=== PATIENT | male | born 1985 | race Caucasian/White ===

== ENCOUNTER 2017-12-02 18:23 | Emergency (ER) | payer OTHER ==
[2017-12-02] MEDS ORDERED: HYDROCODONE/APAP 5/325 MG TAB ONE (19:13)
[2017-12-02] MEDS ORDERED: IBUPROFEN 400 MG TAB ONE (19:13)
[2017-12-02] MEDS ORDERED: ONDANSETRON 4 MG (ODT) TAB ONE (19:14)
--- NOTE | 2017-12-02 19:50 | ER ---
Nurse's Notes [facility] Name: Shane Calero II Age: 32 yrs Sex: Male : 1985 Arrival Date: 12/02/2017 Time: 18:29 Bed 12 Private MD: Prashant Reyes Diagnosis: Sprain of ankle Presentation: 12/02 18:50 Presenting complaint: Patient states: Reports pain to right ankle since rolling it at aj 1300 today. Patient reports ambulating since injury. Transition of care: patient was not received from another setting of care. Onset of symptoms was December 02, 2017. Risk Assessment: Do you want to hurt yourself or someone else? Patient reports no desire to harm self or others. Initial Sepsis Screen: Does the patient meet any 2 criteria? No. Patient's initial sepsis screen is negative. Does the patient have a suspected source of infection? No. Patient's initial sepsis screen is negative. Care prior to arrival: None. 18:50 Method Of Arrival: Wheelchair 18:50 Acuity: JOSEPH 4 aj Triage Assessment: 18:51 General: Appears in no apparent distress. uncomfortable, Behavior is calm, cooperative, aj appropriate for age. Pain: Complains of pain in anterior aspect of right ankle and dorsum of right foot. Neuro: Level of Consciousness is awake, alert, obeys commands, Oriented to person, place, time, situation, Appropriate for age. Respiratory: Airway is patent Respiratory effort is even, unlabored, Respiratory pattern is regular, symmetrical. Derm: Skin is intact, is healthy with good turgor, Skin is pink, warm \T\ dry. normal. Musculoskeletal: Reports pain in right ankle and lateral aspect of right foot. Historical: - Allergies: 18:51 No Known Allergies; aj - Home Meds: 18:51 None [Active]; aj - PMHx: 18:51 None; aj - PSHx: 18:51 None; aj - Immunization history:: Adult Immunizations up to date. - Social history:: Smoking status: Patient uses tobacco products, denies chronic smoking, but will smoke occasionally. - Ebola Screening: : Patient negative for fever greater than or equal to 101.5 degrees Fahrenheit, and additional compatible Ebola Virus Disease symptoms Patient denies exposure to infectious person Patient denies travel to an Ebola-affected area in the 21 days before illness onset No symptoms or risks identified at this time. Screenin:00 Abuse screen: Denies threats or abuse. Nutritional screening: No deficits noted. rk2 Tuberculosis screening: No symptoms or risk factors identified. Fall Risk None identified. Assessment: 19:01 General: Appears in no apparent distress. uncomfortable, well developed, well rk2 nourished, Behavior is calm, cooperative, appropriate for age. Pain: Complains of pain in lateral aspect of right foot and right ankle and right leg and dorsum of right foot and anterior aspect of right ankle. Neuro: Level of Consciousness is alert, obeys commands, Oriented to person, place, time, situation, Appropriate for age. Respiratory: Airway is patent Respiratory effort is even, unlabored, Respiratory pattern is regular, symmetrical. Derm: Skin is pink, warm \T\ dry. Injury Description: Swelling, good pedal pulse and cap refill. 19:40 Reassessment: Xray completed \T\ bedside. rk2 Vital Signs: 18:51 BP 156 / 97; Pulse 106; Resp 20; Temp 98.5; Pulse Ox 97% on R/A; Weight 115.67 kg; aj Height 6 ft. 1 in. (185.42 cm); 18:51 Body Mass Index 33.64 (115.67 kg, 185.42 cm) aj ED Course: 18:29 Patient arrived in ED. sb2 18:29 Prashant Reyes MD is Private Physician. sb2 18:38 Naf[facility] L[facility]C [facility]. snw 18:38 Mike Santos MD is Attending Physician. snw 18:51 Triage completed. aj 18:51 Arm band placed on left wrist. Patient placed in an exam room. aj 19:00 Marina King, IVETTE is Primary Nurse. rk2 19:00 Patient has correct armband on for positive identification. Bed in low position. Call rk2 light in reach. 19:39 Ankle Right 3 View XRAY Sent. rk2 19:45 X-ray completed. Portable x-ray completed in exam room. Patient tolerated procedure kp1 well. 19:45 Ankle Right 3 View XRAY In Process Unspecified. EDMS 19:49 Prashant Reyes MD is Referral Physician. snw 20:12 No provider procedures requiring assistance completed. Patient did not have IV access rk2 during this emergency room visit. Administered Medications: 19:13 Drug: Motrin 400 mg Route: PO; rk2 20:12 Follow up: Response: No adverse reaction rk2 19:13 Drug: Zofran 4 mg Route: PO; rk2 20:12 Follow up: Response: No adverse reaction rk2 19:14 Drug: [place] 5 mg-325 mg 1 tabs Route: PO; rk2 20:12 Follow up: Response: No adverse reaction rk2 Outcome: 19:50 Discharge ordered by MD. ortiz 20:12 Discharged to home with crutches. rk2 20:12 Condition: good 20:12 Discharge instructions given to patient, Prescriptions given X 2. 20:13 Patient left the ED. rk2 Signatures: Dispatcher [employer] Sabine Espinoza RN Nafisa Truong, BELL PERSON-C BELL PERSON-Csnw Courtney Roe kp1 Marina King RN RN rk2 Tete Prince sb2
--- NOTE | 2017-12-02 19:50 | EDPHYS ---
Physician Documentation [facility] Name: Shane Calero II Age: 32 yrs Sex: Male : 1985 Arrival Date: 12/02/2017 Time: 18:29 Bed 12 Private MD: Prashant Reyes ED Physician Mike Santos HPI: 12/02 19:06 This 32 yrs old Male presents to ER via Wheelchair with complaints of Ankle snw Injury. 19:06 The patient presents with decreased range of motion, an injury, pain, swelling. The snw complaints affect the right ankle. Onset: The symptoms/episode began/occurred suddenly, today. Context: The problem was sustained at work, resulted from a mis-step by the patient, onto a 1/4" pipe off as he stepped off the ladder onto the platform, The mechanism of injury involved inversion of the affected ankle. Associated signs and symptoms: Pertinent positives: swelling. Severity of symptoms: At their worst the symptoms were severe. The patient has not experienced similar symptoms in the past. It is unknown whether or not the patient has recently seen a physician. Historical: - Allergies: 18:51 No Known Allergies; aj - Home Meds: 18:51 None [Active]; aj - PMHx: 18:51 None; aj - PSHx: 18:51 None; aj - Immunization history:: Adult Immunizations up to date. - Social history:: Smoking status: Patient uses tobacco products, denies chronic smoking, but will smoke occasionally. - Ebola Screening: : Patient negative for fever greater than or equal to 101.5 degrees Fahrenheit, and additional compatible Ebola Virus Disease symptoms Patient denies exposure to infectious person Patient denies travel to an Ebola-affected area in the 21 days before illness onset No symptoms or risks identified at this time. ROS: 19:05 Constitutional: Negative for fever, chills, and weight loss, Eyes: Negative for injury, snw pain, redness, and discharge, ENT: Negative for injury, pain, and discharge, Neck: Negative for injury, pain, and swelling, Cardiovascular: Negative for chest pain, palpitations, and edema, Respiratory: Negative for shortness of breath, cough, wheezing, and pleuritic chest pain, Abdomen/GI: Negative for abdominal pain, nausea, vomiting, diarrhea, and constipation, Back: Negative for injury and pain, : Negative for injury, bleeding, discharge, and swelling, Skin: Negative for injury, rash, and discoloration, Neuro: Negative for headache, weakness, numbness, tingling, and seizure. 19:05 MS/extremity: Positive for injury or acute deformity, decreased range of motion, pain, swelling, of the right ankle. Exam: 19:05 Constitutional: This is a well developed, well nourished patient who is awake, alert, snw and in no acute distress. Head/Face: Normocephalic, atraumatic. Eyes: Pupils equal round and reactive to light, extra-ocular motions intact. Lids and lashes normal. Conjunctiva and sclera are non-icteric and not injected. Cornea within normal limits. Periorbital areas with no swelling, redness, or edema. ENT: Nares patent. No nasal discharge, no septal abnormalities noted. Tympanic membranes are normal and external auditory canals are clear. Oropharynx with no redness, swelling, or masses, exudates, or evidence of obstruction, uvula midline. Mucous membranes moist. Neck: Trachea midline, no thyromegaly or masses palpated, and no cervical lymphadenopathy. Supple, full range of motion without nuchal rigidity, or vertebral point tenderness. No Meningismus. Chest/axilla: Normal chest wall appearance and motion. Nontender with no deformity. No lesions are appreciated. Cardiovascular: Regular rate and rhythm with a normal S1 and S2. No gallops, murmurs, or rubs. Normal PMI, no JVD. No pulse deficits. Respiratory: Lungs have equal breath sounds bilaterally, clear to auscultation and percussion. No rales, rhonchi or wheezes noted. No increased work of breathing, no retractions or nasal flaring. Abdomen/GI: Soft, non-tender, with normal bowel sounds. No distension or tympany. No guarding or rebound. No evidence of tenderness throughout. Back: No spinal tenderness. No costovertebral tenderness. Full range of motion. Skin: Warm, dry with normal turgor. Normal color with no rashes, no lesions, and no evidence of cellulitis. Neuro: Awake and alert, GCS 15, oriented to person, place, time, and situation. Cranial nerves II-XII grossly intact. Motor strength 5/5 in all extremities. Sensory grossly intact. Cerebellar exam normal. Normal gait. Psych: Awake, alert, with orientation to person, place and time. Behavior, mood, and affect are within normal limits. 19:05 Musculoskeletal/extremity: Extremities: grossly normal except: noted in the right ankle: contusion, decreased ROM, ecchymosis, pain, swelling. Vital Signs: 18:51 BP 156 / 97; Pulse 106; Resp 20; Temp 98.5; Pulse Ox 97% on R/A; Weight 115.67 kg; aj Height 6 ft. 1 in. (185.42 cm); 18:51 Body Mass Index 33.64 (115.67 kg, 185.42 cm) aj MDM: 18:39 Patient medically screened. snw 19:51 Data reviewed: vital signs, nurses notes. Data interpreted: Pulse oximetry: on room air snw is 97 %. Interpretation: normal. Test interpretation: by ED physician or midlevel provider: plain radiologic studies, right ankle, soft tissue edema, no noted fx. Special discussion: I have referred the patient to see his PCP for further evaluation of high blood pressure. Based on the history and exam findings, there is no indication for further emergent testing or inpatient evaluation. I discussed with the patient/guardian the need to see the orthopedic surgeon for further evaluation of the symptoms. I discussed with the patient/guardian the need to see the primary care provider for further evaluation of the symptoms. 12/02 18:52 Order name: Ankle Right 3 View XRAY; Complete Time: 20:01 snw 12/02 19:49 Order name: Aircast Ankle Splint; Complete Time: 20:11 snw 12/02 19:49 Order name: Crutch Training; Complete Time: 20:11 snw 12/02 19:49 Order name: Crutches; Complete Time: 20:11 snw Administered Medications: 19:13 Drug: Motrin 400 mg Route: PO; rk2 20:12 Follow up: Response: No adverse reaction rk2 19:13 Drug: Zofran 4 mg Route: PO; rk2 20:12 Follow up: Response: No adverse reaction rk2 19:14 Drug: [place] 5 mg-325 mg 1 tabs Route: PO; rk2 20:12 Follow up: Response: No adverse reaction rk2 Disposition: 12/03 06:54 Co-signature as Attending Physician, Mike Santos MD I agree with the assessment and sana plan of care. Disposition: 12/02/17 19:50 Discharged to Home. Impression: Sprain of ankle. - Condition is Stable. - Discharge Instructions: Elastic Bandage and RICE, Ankle Sprain, Crutch Use, Ankle Pain, Cryotherapy, Heat Therapy. - Prescriptions for Diclofenac Sodium 75 mg Oral Tablet Sustained Release - take 1 tablet by ORAL route 2 times per day; 30 tablet. orphenadrine citrate 100 mg Oral Tablet Sustained Release - take 1 tablet by ORAL route 2 times per day As needed; 20 tablet. - Work release form, Medication Reconciliation Form, Thank You Letter, Antibiotic Education, Prescription Opioid Use form. - Follow up: Prashant Reyes MD; When: 2 - 3 days; Reason: Recheck today's complaints, Continuance of care, Re-evaluation by your physician. Follow up: Emergency Department; When: As needed; Reason: Worsening of condition. Signatures: Dispatcher [employer] EDMS Sabine Silva RN Mike Oconnell MD MD cha Therrien, Shelly, BROADCAST DESIGNER-C BROADCAST DESIGNER-Csnw Marina King RN RN rk2 Corrections: (The following items were deleted from the chart) 12/02 20:13 19:50 12/02/2017 19:50 Discharged to Home. Impression: Sprain of ankle. Condition is rk2 Stable. Forms are Medication Reconciliation Form, Thank You Letter, Antibiotic Education, Prescription Opioid Use. Follow up: Prashant Reyes; When: 2 - 3 days; Reason: Recheck today's complaints, Continuance of care, Re-evaluation by your physician. Follow up: Emergency Department; When: As needed; Reason: Worsening of condition. snw
--- NOTE | 2017-12-02 19:55 | RAD REPORT ---
EXAM DESCRIPTION: RAD - Ankle Right 3 View - 12/02/2017 7:46 pm CLINICAL HISTORY: PAIN Twisting injury to right ankle. COMPARISON: Ankle Right 3 View dated 06/09/2016 FINDINGS: Soft tissue swelling is seen along the lateral aspect of the ankle. Small avulsion fractur e from the lateral process of the talus is suspected.
[2017-12-02 20:17] VITALS: BP 156/97; TEMP 98.5; O2SAT 97
== END 2017-12-02 20:13 | disposition home or self-care (01) ==
LOC: ER 18:23
DX: S93.401A Sprain of unspecified ligament of right ankle, initial encounter (principal); X50.1XXA Overexertion from prolonged static or awkward postures, initial encounter; Y93.9 Activity, unspecified; Y92.69 Other specified industrial and construction area as the place of occurrence of the external cause; Z72.0 Tobacco use
CPT/HCPCS: 99283

== ENCOUNTER 2019-06-22 15:01 | Emergency (ER) | payer BC ==
[2019-06-22] MEDS ORDERED: DIAZEPAM 5 MG TABLET ONE (16:14)
--- NOTE | 2019-06-22 18:18 | RAD REPORT ---
EXAM DESCRIPTION: MRI - Lumbar Spine Wo Con - 06/22/2019 6:03 pm CLINICAL HISTORY: Back pain with bilateral lower extremity radiculopathy following a fall 2 days ear lier COMPARISON: None. TECHNIQUE: Sagittal T1-weighted, T2-weighted and T2-STIR weighted sequences were obtained. Axial T1 -weighted and heavily T2-weighted sequenceswere obtained through the lumbar disc levels. FINDINGS: Lumbar bodies are normal in height and alignment. No suspicious marrow signal. No paraspi nal masses. Fatty marrow degenerative changes are present adjacent to the L3-4 and L4-5 disc levels. Conus is normal with no clumping or thickening of the cauda equina. T12-L1 level: No significant findings. L1-2 level: No significant findings. L2-3 level: Disc is desiccated. There is a prominent bulge of disc material in the midline flattening the thecal sac. Midline canal diameter is 11 mm. No significant foraminal encroachment. There is dis c bulge into each exit foramen. L3-4 level: Disc is desiccated. Circumferential bulging of disc material is present. There is mild bi lateral foraminal encroachment. Perineural fat is still present. Thecal sac is flattened. Protrusion is focally more pronounced in the midline. Central canal is 10 mm in the midline. L4-5 level: Disc is thinned and desiccated. There is a circumferential bulging of disc material. No s ignificant foraminal encroachment. Thecal sac is flattened. At the disc level the canal is 10 mm. The re is a 8 mm AP x 9 mm TR disc herniation that extends inferiorly along the posterior wall of L5. Thi s causes further flattening of the thecal sac in the midline and left-side. L5-S1 level: Disc is desiccated. Left of midline there is a 9 mm AP by 14 mm TR x 8 mm CC disc hernia tion. This flattens the thecal sac and displaces the left S1 nerve root. No central spinal stenosis. No significant right foraminal encroachment. Protruding disc material causes a mild to moderate left foraminal encroachment. IMPRESSION: Moderately large midline and left-sided disc herniation L5-S1 causing thecal sac flatten ing and left S1 nerve root displacement. L4-5 midline and left-sided disc herniation extending inferiorly along posterior wall L5. There is th ecal sac flattening and borderline central spinal stenosis. No critical degree of foraminal stenosis identified. Multiple levels show mild up to moderate encroac hment. Overall patient has very advanced for age degenerative change involving the lower 4 lumbar disc level s. No acute compression fracture. No acute vertebral body finding.
--- NOTE | 2019-06-22 18:39 | ER ---
Nurse's Notes [facility] Name: Shane Calero II Age: 33 yrs Sex: Male : 1985 Arrival Date: 06/22/2019 Time: 15:06 Bed 18 Private MD: Prashant Reyes Diagnosis: Acute back pain. Prolapsed intervertebral discs Presentation: 06/22 15:12 Presenting complaint: Patient states: i fell 2 days ago from a ladder about 3-4 feet mg2 high and i landed on my back. i also have bone spurts accdg to Dr Arreola. Transition of care: patient was not received from another setting of care. Onset of symptoms was June 20, 2019. Risk Assessment: Do you want to hurt yourself or someone else? Patient reports no desire to harm self or others. Initial Sepsis Screen: Does the patient meet any 2 criteria? No. Patient's initial sepsis screen is negative. Does the patient have a suspected source of infection? No. Patient's initial sepsis screen is negative. Care prior to arrival: None. 15:12 Method Of Arrival: Ambulatory mg2 15:12 Acuity: JOSEPH 4 mg2 Triage Assessment: 15:30 General: Appears in no apparent distress. comfortable, Behavior is cooperative, bp appropriate for age, anxious. Pain: Complains of pain in buttocks. EENT: No deficits noted. Neuro: No deficits noted. Cardiovascular: No deficits noted. Respiratory: No deficits noted. GI: No signs and/or symptoms were reported involving the gastrointestinal system. : No signs and/or symptoms were reported regarding the genitourinary system. Derm: No deficits noted. Musculoskeletal: Circulation, motion, and sensation intact. Range of motion: intact in all extremities. Historical: - Allergies: 15:16 No Known Allergies; mg2 - Home Meds: 15:16 None [Active]; mg2 - PMHx: 15:16 bone spurts on my back; mg2 - PSHx: 15:16 elbow sx; mg2 - Immunization history:: Flu vaccine is up to date. - Social history:: Smoking status: Patient uses tobacco products, smokes one-half pack cigarettes per day, Patient/guardian denies using alcohol, street drugs, IV drugs. - Ebola Screening: : No symptoms or risks identified at this time. Screenin:37 Abuse screen: Denies threats or abuse. Denies injuries from another. Nutritional mg2 screening: No deficits noted. Tuberculosis screening: No symptoms or risk factors identified. Fall Risk Assessment: 15:30 General: SEE TRIAGE NOTE. Neuro: Level of Consciousness is awake, alert, obeys bp commands, Oriented to person, place, time, situation, Appropriate for age Gait is steady. 17:17 Reassessment: PT STATES SOME IMPROVEMENT IN S/S. MRI PENDING. bp 17:34 Reassessment: PT TO MRI. bp 18:16 Reassessment: PT RETURNED FROM MRI. 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 bp XRAY NOTIFIED. 18:49 Reassessment: D/C ON HOLD FOR RADIOLOGY DISC. bp 19:25 Reassessment: Patient appears in no apparent distress at this time. Patient and/or wh family updated on plan of care and expected duration. Pain level reassessed. Patient is alert, oriented x 3, equal unlabored respirations, skin warm/dry/pink. Patient states feeling better. Patient states symptoms have improved. Vital Signs: 15:15 BP 149 / 104; Pulse 105; Resp 18; Temp 98.2; Pulse Ox 100% on R/A; Weight 109.77 kg; mg2 Height 6 ft. 1 in. (185.42 cm); Pain 10/10; 17:17 BP 126 / 88; Pulse 90; Resp 16; Pulse Ox 97% ; bp 18:16 BP 124 / 81; Pulse 84; Resp 16; Pulse Ox 96% ; bp 15:15 Body Mass Index 31.93 (109.77 kg, 185.42 cm) mg2 ED Course: 15:06 Patient arrived in ED. mr 15:06 Prashant Reyes MD is Private Physician. mr 15:15 Triage completed. mg2 15:16 Arm band placed on. mg2 15:52 Javier Strickland, IVETTE is Primary Nurse. bp 15:52 Ramón Beck MD is Attending Physician. pkl 15:53 Patient has correct armband on for positive identification. Bed in low position. Call bp light in reach. Side rails up X2. 17:54 MRI Lumbar Spine wo Con In Process Unspecified. EDMS 18:49 No provider procedures requiring assistance completed. Patient did not have IV access bp during this emergency room visit. Administered Medications: 16:05 Drug: Valium 10 mg Route: PO; bp 18:25 Follow up: Response: No adverse reaction; Pain is decreased bp 18:45 Drug: Zofran 4 mg Route: PO; bp 19:32 Follow up: Response: No adverse reaction; RASS: Alert and Calm (0) 18:45 Drug: morphine 4 mg Route: IM; Site: left deltoid; bp 19:32 Follow up: Response: No adverse reaction; Pain is decreased; RASS: Alert and Calm (0) 18:48 Not Given (Other Intervention Used): morphine 4 mg IVP once; RASS on ADMIN: Combtv4, bp Very Agttd3, Agttd2, Rstlss1, AlertClm0, Drwsy-1, Lt Sdtn-2, Mod Sdtn-3, Dp Sdtn-4, UnArsble-5 Outcome: 18:37 Discharge ordered by . joaquín 19:30 Discharged to home ambulatory, with family. 19:30 Condition: stable 19:30 Discharge instructions given to patient, family, Instructed on discharge instructions, follow up and referral plans. no drinking with medication, no driving heavy equipment, medication usage, POC Demonstrated understanding of instructions, follow-up care, medications, POC Prescriptions given X 2. 19:33 Patient left the ED. Signatures: Dispatcher [employer] EDMS Ramón Beck MD MD joaquín Hilton, Charla mr Melendez, Bonnie Javier Strickland, IVETTE RN Trip Rick RN RN mg2 Corrections: (The following items were deleted from the chart) 15:36 15:12 Presenting complaint: Patient states: i fell q2 days ago from a ladder about 3-4 mg2 feet high and i landed on my back. i also have bone spurts accdg to Dr Arreola. mg2 15:36 15:12 Presenting complaint: Patient states: i fell 2 days ago from a ladder about 3-4 mg2 feet high and i landed on my back. i also have bone spurts accdg to Dr Arreola. 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
--- NOTE | 2019-06-22 18:39 | EDPHYS ---
Physician Documentation [facility] Name: Shane Calero II Age: 33 yrs Sex: Male : 1985 Arrival Date: 06/22/2019 Time: 15:06 Bed 18 Private MD: Prashant Reyes ED Physician Ramón Beck HPI: 06/22 16:01 This 33 yrs old Male presents to ER via Ambulatory with complaints of Back pkl Pain. 16:01 The patient presents with pain that is acute. The symptoms are located in the low back. pkl Onset: The symptoms/episode began/occurred 2 day(s) ago. The pain radiates to the down right thigh. Associated signs and symptoms: The patient has no apparent associated signs or symptoms. The problem was sustained during a fall, Fell off ladder about 4 feet high. Historical: - Allergies: 15:16 No Known Allergies; mg2 - Home Meds: 15:16 None [Active]; mg2 - PMHx: 15:16 bone spurts on my back; mg2 - PSHx: 15:16 elbow sx; mg2 - Immunization history:: Flu vaccine is up to date. - Social history:: Smoking status: Patient uses tobacco products, smokes one-half pack cigarettes per day, Patient/guardian denies using alcohol, street drugs, IV drugs. - Ebola Screening: : No symptoms or risks identified at this time. ROS: 16:01 Eyes: Negative for injury, pain, redness, and discharge, ENT: Negative for injury, pkl pain, and discharge, Neck: Negative for injury, pain, and swelling, Cardiovascular: Negative for chest pain, palpitations, and edema, Respiratory: Negative for shortness of breath, cough, wheezing, and pleuritic chest pain, Abdomen/GI: Negative for abdominal pain, nausea, vomiting, diarrhea, and constipation. 16:01 Back: Positive for pain with movement, of the lower back. 16:01 : Negative for urinary symptoms. 16:01 MS/extremity: Negative for acute changes. 16:01 Skin: Negative for rash. 16:01 Neuro: Negative for altered mental status, loss of consciousness. Exam: 16:01 Head/Face: Normocephalic, atraumatic. Eyes: Pupils equal round and reactive to light, pkl extra-ocular motions intact. Lids and lashes normal. Conjunctiva and sclera are non-icteric and not injected. Cornea within normal limits. Periorbital areas with no swelling, redness, or edema. ENT: Nares patent. No nasal discharge, no septal abnormalities noted. Tympanic membranes are normal and external auditory canals are clear. Oropharynx with no redness, swelling, or masses, exudates, or evidence of obstruction, uvula midline. Mucous membranes moist. Neck: Trachea midline, no thyromegaly or masses palpated, and no cervical lymphadenopathy. Supple, full range of motion without nuchal rigidity, or vertebral point tenderness. No Meningismus. Chest/axilla: Normal chest wall appearance and motion. Nontender with no deformity. No lesions are appreciated. Cardiovascular: Regular rate and rhythm with a normal S1 and S2. No gallops, murmurs, or rubs. Normal PMI, no JVD. No pulse deficits. Respiratory: Lungs have equal breath sounds bilaterally, clear to auscultation and percussion. No rales, rhonchi or wheezes noted. No increased work of breathing, no retractions or nasal flaring. Abdomen/GI: Soft, non-tender, with normal bowel sounds. No distension or tympany. No guarding or rebound. No evidence of tenderness throughout. 16:01 Back: Straight leg raises: of both lower extremities does not illicit pain. 16:01 Musculoskeletal/extremity: Exam is negative for acute changes. pkl 16:01 Skin: Exam negative for rash. 16:01 Neuro: Orientation: is normal, Mentation: is normal, Cranial nerves: grossly normal, Motor: is normal. Vital Signs: 15:15 BP 149 / 104; Pulse 105; Resp 18; Temp 98.2; Pulse Ox 100% on R/A; Weight 109.77 kg; mg2 Height 6 ft. 1 in. (185.42 cm); Pain 10/10; 17:17 BP 126 / 88; Pulse 90; Resp 16; Pulse Ox 97% ; bp 18:16 BP 124 / 81; Pulse 84; Resp 16; Pulse Ox 96% ; bp 15:15 Body Mass Index 31.93 (109.77 kg, 185.42 cm) mg2 MDM: 15:52 Patient medically screened. pkl 18:31 Data reviewed: vital signs, nurses notes, radiologic studies, MRI. ED course: [facility]. Advised follow up with neuro-surgeon in 2 to 3 days for further evaluations. Patient understood instructions. 06/22 15:59 Order name: MRI Lumbar Spine wo Con; Complete Time: 18:22 pkl Administered Medications: 16:05 Drug: Valium 10 mg Route: PO; bp 18:25 Follow up: Response: No adverse reaction; Pain is decreased bp 18:45 Drug: Zofran 4 mg Route: PO; bp 19:32 Follow up: Response: No adverse reaction; RASS: Alert and Calm (0) wh 18:45 Drug: morphine 4 mg Route: IM; Site: left deltoid; bp 19:32 Follow up: Response: No adverse reaction; Pain is decreased; RASS: Alert and Calm (0) wh 18:48 Not Given (Other Intervention Used): morphine 4 mg IVP once; RASS on ADMIN: Combtv4, bp Very Agttd3, Agttd2, Rstlss1, AlertClm0, Drwsy-1, Lt Sdtn-2, Mod Sdtn-3, Dp Sdtn-4, UnArsble-5 Disposition: 06/22/19 18:37 Discharged to Home. Impression: Acute back pain. Prolapsed intervertebral discs. - Condition is Stable. - Prescriptions for Tylenol- Codeine #3 300-30 mg Oral Tablet - take 2 tablets by ORAL route every 8 hours As needed; 30 tablet. Valium 10 mg Oral Tablet - take 1 tablet by ORAL route 2 times per day As needed; 14 tablet. - Work release form, Medication Reconciliation Form, Thank You Letter, Antibiotic Education, Prescription Opioid Use form. - Follow up: Private Physician; When: 2 - 3 days; Reason: Re-evaluation by your physician. - Problem is new. - Symptoms have improved. Signatures: Dispatcher [employer] EDMS Ramón Beck MD MD pkBonnie Veras Javier Strickland RN RN Trip Rick RN RN mg2 Corrections: (The following items were deleted from the chart) 16:07 16:01 Back: pain, that is moderate, of the lower back, pkl pkl 19:33 18:37 06/22/2019 18:37 Discharged to Home. Impression: Acute back pain. Prolapsed wh intervertebral discs. Condition is Stable. Forms are Medication Reconciliation Form, Thank You Letter, Antibiotic Education, Prescription Opioid Use. Follow up: Private Physician; When: 2 - 3 days; Reason: Re-evaluation by your physician. Problem is new. Symptoms have improved. pkl
[2019-06-22] MEDS ORDERED: ONDANSETRON 4 MG (ODT) TAB ONE (18:43)
[2019-06-22] MEDS ORDERED: MORPHINE 4 MG/ML SYR ONE (18:44)
[2019-06-22 20:15] VITALS: TEMP 98.2
[2019-06-22 20:18] VITALS: BP 124/81; O2SAT 96
== END 2019-06-22 19:33 | disposition home or self-care (01) ==
LOC: ER 15:01
DX: M51.26 Other intervertebral disc displacement, lumbar region (principal); R20.2 Paresthesia of skin; F17.210 Nicotine dependence, cigarettes, uncomplicated
CPT/HCPCS: 72148; 96372; 99283

== ENCOUNTER 2019-06-27 09:23 | Emergency (ER) | payer BC ==
[2019-06-27] MEDS ORDERED: DIAZEPAM 5 MG TABLET ONE (10:54)
[2019-06-27] MEDS ORDERED: MORPHINE 4 MG/ML SYR ONE (10:54)
[2019-06-27] MEDS ORDERED: ONDANSETRON 4 MG (ODT) TAB ONE (10:55)
[2019-06-27] MEDS ORDERED: KETOROLAC 30 MG/ML INJ ONE (11:17)
[2019-06-27] MEDS ORDERED: LIDOCAINE 4% PATCH ONE (11:17)
--- NOTE | 2019-06-27 11:33 | ER ---
Nurse's Notes [facility] Name: Shane Calero II Age: 33 yrs Sex: Male : 1985 Arrival Date: 06/27/2019 Time: 09:25 Bed 19 Private MD: Prashant Reyes Diagnosis: Other intervertebral disc disorders, lumbar region;Low back pain Presentation: 06/27 09:46 Presenting complaint: Patient states: came in on Saturday , diagnosed with herniated iw disc, was given pain meds but his local doctor recommended him to pain magmt, can't get in for 3-6 months, pain meds are going to run out tomorrow, wants to be reevaluated to see if he can get more pain meds. Transition of care: patient was not received from another setting of care. Onset of symptoms was June 27, 2019. Risk Assessment: Do you want to hurt yourself or someone else? Patient reports no desire to harm self or others. Initial Sepsis Screen: Does the patient meet any 2 criteria? No. Patient's initial sepsis screen is negative. Does the patient have a suspected source of infection? No. Patient's initial sepsis screen is negative. Care prior to arrival: None. 09:46 Method Of Arrival: Ambulatory iw 09:46 Acuity: JOSEPH 4 iw Triage Assessment: 10:00 General: Appears in no apparent distress. comfortable, Behavior is calm, cooperative, bp appropriate for age. Pain: Complains of pain in back. EENT: No deficits noted. Neuro: No deficits noted. Cardiovascular: No deficits noted. Respiratory: No deficits noted. GI: No signs and/or symptoms were reported involving the gastrointestinal system. : No signs and/or symptoms were reported regarding the genitourinary system. Derm: No deficits noted. Musculoskeletal: Circulation, motion, and sensation intact. Range of motion: intact in all extremities. Historical: - Allergies: 09:48 No Known Allergies; iw - Home Meds: 09:48 Valium Oral [Active]; Tylenol #3 Oral [Active]; iw - PMHx: 09:48 bone spurts on my back; iw - PSHx: 09:48 elbow sx; iw - Immunization history:: Adult Immunizations up to date. - Social history:: Smoking status: Patient reports the use of cigarette tobacco products, smokes one-half pack cigarettes per day. - Ebola Screening: : Patient negative for fever greater than or equal to 101.5 degrees Fahrenheit, and additional compatible Ebola Virus Disease symptoms Patient denies exposure to infectious person Patient denies travel to an Ebola-affected area in the 21 days before illness onset No symptoms or risks identified at this time. Screenin:17 Abuse screen: Denies threats or abuse. Denies injuries from another. Nutritional bp screening: No deficits noted. Tuberculosis screening: No symptoms or risk factors identified. Fall Risk None identified. Assessment: 10:14 General: Appears in no apparent distress. comfortable, Behavior is cooperative, bp appropriate for age, anxious. Neuro: Level of Consciousness is awake, alert, obeys commands, Oriented to person, place, time, situation, Appropriate for age. 11:51 Reassessment: PT D/C HOME AMBULATORY WITH FAMILY, DX WITH INTERVERTEBRAL DISC DISORDER. bp Vital Signs: 09:48 BP 137 / 97; Pulse 105; Resp 16; Temp 98.8; Pulse Ox 96% on R/A; Weight 109.77 kg; iw Height 6 ft. 1 in. (185.42 cm); Pain 10/10; 11:51 BP 141 / 89; Pulse 97; Resp 17; Temp 98.8; Pulse Ox 97% ; bp 09:48 Body Mass Index 31.93 (109.77 kg, 185.42 cm) iw ED Course: 09:25 Patient arrived in ED. mr 09:25 Prashant Reyes MD is Private Physician. mr 09:47 Triage completed. iw 09:48 Arm band placed on. iw 10:05 Ruben Garcia NP is PHCP. pm1 10:05 Seth Bailey MD is Attending Physician. pm1 10:13 Javier Strickland, IVETTE is Primary Nurse. bp 10:17 Patient has correct armband on for positive identification. Bed in low position. Call bp light in reach. Side rails up X2. 11:52 No provider procedures requiring assistance completed. Patient did not have IV access bp during this emergency room visit. Administered Medications: 10:40 Drug: Valium 10 mg Route: PO; bp 11:54 Follow up: Response: Pain is decreased bp 10:40 Drug: morphine 4 mg Route: IM; Site: left deltoid; bp 11:54 Follow up: Response: Pain is decreased bp 10:40 Drug: Zofran 4 mg Route: PO; bp 11:54 Follow up: Response: Pain is decreased bp 11:10 Drug: TORadol 60 mg Route: IM; Site: left gluteus; bp 11:54 Follow up: Response: Pain is decreased bp 11:10 Drug: Lidoderm 5 % (700 mg/patch) 1 patches Route: Topical; Site: affected area; bp Outcome: 11:31 Discharge ordered by MD. pm1 11:52 Discharged to home ambulatory, with family. bp 11:52 Condition: stable 11:52 Discharge instructions given to patient, Instructed on discharge instructions, follow up and referral plans. medication usage, Demonstrated understanding of instructions, follow-up care, medications, Prescriptions given X 3. 11:55 Patient left the ED. bp Signatures: Charla Hilton Irene, RN RN iw Ruben Garcia NP CONTROL SYSTEMS DRAFTING OFFICER pm1 Javier Strickland RN RN bp
--- NOTE | 2019-06-27 11:33 | EDPHYS ---
Physician Documentation [facility] Name: Shane Calero II Age: 33 yrs Sex: Male : 1985 Arrival Date: 06/27/2019 Time: 09:25 Bed 19 Private MD: Prashant Reyes ED Physician Seth Bailey HPI: 06/27 10:24 This 33 yrs old Male presents to ER via Ambulatory with complaints of Back pm1 Pain. 10:24 The patient presents with pain. The symptoms are located in the low back. pm1 10:24 Onset: The symptoms/episode began/occurred 7 day(s) ago. Location: right leg. pm1 Associated signs and symptoms: Pertinent negatives: abdominal pain, chest pain, constipation, dysuria, fever, nausea, vomiting. The problem was sustained fall injury from 4 foot ladder 7 days ago. Modifying factors: The patient symptoms are alleviated by specific position, the patient symptoms are aggravated by movement. Severity of symptoms: in the emergency department the symptoms are unchanged. history of back injury and chronic pain in the past. The patient has been recently seen at the [facility] Emergency Department, this week, Seen here on Saturday and had MRI performed. 10:24 Saw PCP and referred to pain management. [facility]. Patient pm1 believes back injury primarily from service. Coming to the ER because it will take about 3 months for approval . Historical: - Allergies: 09:48 No Known Allergies; iw - Home Meds: 09:48 Valium Oral [Active]; Tylenol #3 Oral [Active]; iw - PMHx: 09:48 bone spurts on my back; iw - PSHx: 09:48 elbow sx; iw - Immunization history:: Adult Immunizations up to date. - Social history:: Smoking status: Patient reports the use of cigarette tobacco products, smokes one-half pack cigarettes per day. - Ebola Screening: : Patient negative for fever greater than or equal to 101.5 degrees Fahrenheit, and additional compatible Ebola Virus Disease symptoms Patient denies exposure to infectious person Patient denies travel to an Ebola-affected area in the 21 days before illness onset No symptoms or risks identified at this time. ROS: 10:24 Constitutional: Negative for fever, chills, and weight loss, Neck: Negative for injury, pm1 pain, and swelling, Cardiovascular: Negative for chest pain, palpitations, and edema, Respiratory: Negative for shortness of breath, cough, wheezing, and pleuritic chest pain, Abdomen/GI: Negative for abdominal pain, nausea, vomiting, diarrhea, and constipation. 10:24 : Negative for injury, bleeding, discharge, and swelling, MS/Extremity: Negative for injury and deformity, Skin: Negative for injury, rash, and discoloration, Neuro: Negative for headache, weakness, numbness, tingling, and seizure. 10:24 Back: Positive for of the low back area. Exam: 10:24 Constitutional: This is a well developed, well nourished patient who is awake, alert, pm1 and in no acute distress. Head/Face: Normocephalic, atraumatic. Neck: Trachea midline, no thyromegaly or masses palpated, and no cervical lymphadenopathy. Supple, full range of motion without nuchal rigidity, or vertebral point tenderness. No Meningismus. Chest/axilla: Normal chest wall appearance and motion. Nontender with no deformity. No lesions are appreciated. Cardiovascular: Regular rate and rhythm with a normal S1 and S2. No gallops, murmurs, or rubs. Normal PMI, no JVD. No pulse deficits. Respiratory: Lungs have equal breath sounds bilaterally, clear to auscultation and percussion. No rales, rhonchi or wheezes noted. No increased work of breathing, no retractions or nasal flaring. Abdomen/GI: Soft, non-tender, with normal bowel sounds. No distension or tympany. No guarding or rebound. No evidence of tenderness throughout. 10:24 Skin: Warm, dry with normal turgor. Normal color with no rashes, no lesions, and no evidence of cellulitis. MS/ Extremity: Pulses equal, no cyanosis. Neurovascular intact. Full, normal range of motion. 10:24 Back: pain, that is moderate, of the low back area, normal spinal alignment noted. 10:24 Neuro: Orientation: is normal, Mentation: is normal, Motor: is normal, moves all fours, strength is normal, strength is 5/5 in all extremities, Sensation: is normal, no obvious gross deficits. Vital Signs: 09:48 BP 137 / 97; Pulse 105; Resp 16; Temp 98.8; Pulse Ox 96% on R/A; Weight 109.77 kg; iw Height 6 ft. 1 in. (185.42 cm); Pain 10/10; 11:51 BP 141 / 89; Pulse 97; Resp 17; Temp 98.8; Pulse Ox 97% ; bp 09:48 Body Mass Index 31.93 (109.77 kg, 185.42 cm) iw MDM: 10:07 Patient medically screened. pm1 11:28 Data reviewed: vital signs. Data interpreted: Pulse oximetry: on room air is 96 %. pm1 Interpretation: normal. 11:28 Counseling: I had a detailed discussion with the patient and/or guardian regarding: the pm1 historical points, exam findings, and any diagnostic results supporting the discharge/admit diagnosis, the need for outpatient follow up, for definitive care, a neurosurgeon, to return to the emergency department if symptoms worsen or persist or if there are any questions or concerns that arise at home. 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 11:36 ED course: Patient was here on Saturday and received pain medications for his back. MRI pm1 was performed on that day and shows multiple prolapsed discs. Checked [employer] for patient and the only pain medications he has received in the past three years for his back pain that has been present since at least 2014 was this Saturday. Patient saw PCP and was referred to pain management. No history of abuse of pain medications according to [employer] so will discharge the patient home with valium, lidoderm, and NSAID. Administered Medications: 10:40 Drug: Valium 10 mg Route: PO; bp 11:54 Follow up: Response: Pain is decreased bp 10:40 Drug: morphine 4 mg Route: IM; Site: left deltoid; bp 11:54 Follow up: Response: Pain is decreased bp 10:40 Drug: Zofran 4 mg Route: PO; bp 11:54 Follow up: Response: Pain is decreased bp 11:10 Drug: TORadol 60 mg Route: IM; Site: left gluteus; bp 11:54 Follow up: Response: Pain is decreased bp 11:10 Drug: Lidoderm 5 % (700 mg/patch) 1 patches Route: Topical; Site: affected area; bp Disposition: 15:27 Co-signature as Attending Physician, Seth Bailey MD. ma2 Disposition: 06/27/19 11:31 Discharged to Home. Impression: Other intervertebral disc disorders, lumbar region, Low back pain. - Condition is Stable. - Discharge Instructions: Back Pain, Adult. - Prescriptions for Lidoderm 5 % Topical adhesive patch,medicated - apply 1 patch by TRANSDERMAL route once daily As needed; 30 Transdermal Patch. Valium 5 mg Oral Tablet - take 1 tablet by ORAL route every 8 hours As needed; 20 tablet. Diclofenac Sodium 75 mg Oral Tablet, Delayed Release (E.C.) - take 1 tablet by ORAL route 2 times per day As needed; 30 tablet. - Medication Reconciliation Form, Thank You Letter, Antibiotic Education, Prescription Opioid Use, Work release form form. - Follow up: Emergency Department; When: As needed; Reason: Worsening of condition. Follow up: Private Physician; When: 2 - 3 days; Reason: Recheck today's complaints, Continuance of care, Re-evaluation by your physician. - Problem is new. - Symptoms have improved. Signatures: Cierra Shen, RN IVETTE iw Ruben Garcia NP HOUSE CARPENTER HELPER pm1 Javier Strickland RN RN bp Alzahri, Mohammad, MD MD ma2 Corrections: (The following items were deleted from the chart) 11:55 11:31 06/27/2019 11:31 Discharged to Home. Impression: Other intervertebral disc bp disorders, lumbar region; Low back pain. Condition is Stable. Forms are Medication Reconciliation Form, Thank You Letter, Antibiotic Education, Prescription Opioid Use. Follow up: Emergency Department; When: As needed; Reason: Worsening of condition. Follow up: Private Physician; When: 2 - 3 days; Reason: Recheck today's complaints, Continuance of care, Re-evaluation by your physician. Problem is new. Symptoms have improved. pm1
[2019-06-27 12:10] VITALS: TEMP 98.8
[2019-06-27 12:12] VITALS: BP 141/89; O2SAT 97
== END 2019-06-27 11:55 | disposition home or self-care (01) ==
LOC: ER 09:23
DX: M51.86 Other intervertebral disc disorders, lumbar region (principal); F17.210 Nicotine dependence, cigarettes, uncomplicated
CPT/HCPCS: 96372; 99283

== ENCOUNTER 2025-03-06 12:59 | Emergency (ER) | payer BC ==
--- OUTSIDE RECORDS SUMMARY | 2025-03-06 13:01 | XMS REPORT | Clinical Summary ---
Author Name Unknown Organization [facility] Address [address] [place] [address] Care Team Providers Care Rn Lactation Consultant Name Role Phone Unavailable Primary Care Provider Unavailabl e Immunizations Immunization Administration Dates Next Due Pfizer SARS-CoV-2 Vaccination 12+ y.o. 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
[2025-03-06] MEDS ORDERED: CYCLOBENZAPRINE 10 MG TAB ONE (14:11)
[2025-03-06] MEDS ORDERED: DIAZEPAM 10 MG/2 ML INJ SYRINGE ONE (14:11)
[2025-03-06] MEDS ORDERED: NA CHLORIDE 0.9% 1,000 ML ONE (14:11)
--- NOTE | 2025-03-06 15:02 | RAD REPORT ---
EXAMINATION: CT LUMBAR SPINE WITHOUT CONTRAST CLINICAL INDICATION: Fall with back pain TECHNIQUE: Axial CT images were obtained through the lumbar spine in soft tissue and bone windows wit hout intravenous contrast. Coronal and Sagittal reformatted images were created from the data set. One or more of the following dose reduction techniques were used: Automated exposure control, adjustm ent of the mA and/ or kV according to patient size, and/or iterative reconstruction. Unless otherwise specified, incidental findings do not require dedicated imaging follow-up. COMPARISON: 2019 MRI FINDINGS: For purposes of this dictation, it is assumed that there are 5 non rib-bearing lumbar type vertebrae, and the most caudal fully segmented lumbar vertebra is labeled L5. No fracture seen No dislocation. Spondylosis L3-4 results in mild to moderate central spinal stenosis Broadbase left posterior lateral osteophyte/disc herniation L4-5 results in mild to moderate narrowin g of the thecal sac. Facet hypertrophy is present. Moderate to large broad-based osteophyte/disc herniation left posterior laterally L5-S1 displaces the left S1 nerve root posteriorly. Facet hypertrophy. IMPRESSION: No fracture seen. Spondylosis and disc herniations as described above If the patient continues to have symptoms to suggest acute spinal canal pathology then MRI would be r ecommended
--- NOTE | 2025-03-06 15:20 | ER ---
Nurse's Notes [facility] Name: Shane Calero II Age: 39 yrs Sex: Male : 1985 Arrival Date: 03/06/2025 Time: 12:59 Bed 6 Private MD: Diagnosis: Low back pain Presentation: 03/06 13:07 Chief complaint: Patient states: TRIPPED AND FELL BACKWARDS OVER A PALLET AT WORK, dd2 LANDING ON HIS BACK. PT REPORTS LUMBAR BACK PAIN. ALSO REPORTS HX OF BACK PAIN. Coronavirus screen: At this time, the client does not indicate any symptoms associated with coronavirus-19. Ebola Screen: No symptoms or risks identified at this time. Initial Sepsis Screen: Does the patient meet any 2 criteria? No. Patient's initial sepsis screen is negative. Does the patient have a suspected source of infection? No. Patient's initial sepsis screen is negative. Risk Assessment: Do you want to hurt yourself or someone else? Patient reports no desire to harm self or others. Onset of symptoms was March 06, 2025 at 03:30. 13:07 Method Of Arrival: Ambulatory dd2 13:07 Acuity: JOSEPH 3 dd2 Triage Assessment: 13:09 General: Appears in no apparent distress. uncomfortable, Behavior is calm, cooperative, dd2 appropriate for age. Pain: Complains of pain in lumbar area Pain currently is 10 out of 10 on a pain scale. Musculoskeletal: Circulation, motion, and sensation intact. Range of motion: intact in all extremities, Reports pain in lumbar area. Historical: - Allergies: 13:09 No Known Allergies; dd2 - PMHx: 13:09 bone spurts on my back; dd2 - PSHx: 13:09 RT ELBOW (bone spurts on my back); dd2 - Immunization history:: Adult Immunizations up to date. - Infectious Disease History:: Denies. - Social history:: Smoking status: Patient reports the use of cigarette tobacco products, smokes .25 packs per day. Screenin:07 [facility] ED Fall Risk Assessment (Adult) History of falling in the last 3 months, bp including since admission No falls in past 3 months (0 pts) Confusion or Disorientation No (0 pts) Intoxicated or Sedated No (0 pts) Impaired Gait No (0 pts) Mobility Assist Device Used No (0 pt) Altered Elimination No (0 pt) Score/Fall Risk Level 0 - 2 = Low Risk Oriented to surroundings. Abuse screen: Denies threats or abuse. Denies injuries from another. Nutritional screening: No deficits noted. Tuberculosis screening: No symptoms or risk factors identified. Assessment: 13:10 General: SEE TRIAGE NOTE. bp 15:06 Reassessment: Patient appears in no apparent distress at this time. Patient is alert, bp oriented x 3, equal unlabored respirations, skin warm/dry/pink. Vital Signs: 13:07 BP 142 / 89; Pulse 82; Resp 16; Temp 98.2; Pulse Ox 100% on R/A; Weight 99.34 kg; Pain dd2 10/10; 14:00 BP 140 / 89; Pulse 77; Resp 16; Pulse Ox 100% on R/A; cm10 15:07 BP 132 / 78; Pulse 75; Resp 16; Pulse Ox 100% ; bp 13:07 Pain Scale: Adult dd2 ED Course: 13:00 Patient arrived in ED. ts1 13:03 [facility]ins [facility] 13:03 Yung Valera MD is Attending Physician. dr5 13:09 Triage completed. dd2 13:09 Arm band placed on left wrist. dd2 13:31 Javier Strickland, IVETTE is Primary Nurse. bp 14:03 Inserted saline lock: 22 gauge in right hand, using aseptic technique. Flushed with 10 cm10 mL NS. 14:03 Missed attempt(s): 20 gauge in right forearm. Bleeding controlled, band aid applied, cm10 catheter tip intact. 14:42 CT Lumbar Spine Wo Con In Process Unspecified. EDMS 15:07 Patient has correct armband on for positive identification. bp 15:31 Provided Education on: Follow-up instructions. cm10 15:32 No provider procedures requiring assistance completed. IV discontinued, intact, cm10 bleeding controlled, No redness/swelling at site. Pressure dressing applied. Administered Medications: 14:18 Drug: Dexamethasone IVP 10 mg IVP once; (not to exceed 40 mg) Route: IVP; Site: right cm10 hand; 15:00 Follow up: Response: No adverse reaction cm10 14:19 Drug: NS 0.9% IV 1000 ml IV at 1000 ml once; to be given as a bolus over 60 minutes cm10 Route: IV; Rate: 1000 ml; Site: right hand; 15:00 Follow up: Response: No adverse reaction; IV Status: Completed infusion; IV Intake: cm10 1000ml 14:19 Drug: Diazepam IVP 5 mg IVP once Route: IVP; Site: right hand; cm10 15:00 Follow up: Response: No adverse reaction cm10 14:19 Drug: Cyclobenzaprine PO 10 mg PO once Route: PO; cm10 15:00 Follow up: Response: No adverse reaction cm10 Medication: 15:33 VIS not applicable for this client. cm10 Intake: 15:00 IV: 1000ml; Total: 1000ml. cm10 Outcome: 15:19 Discharge ordered by MD. dr5 15:32 Discharged to home ambulatory, with significant other, cm10 15:32 Condition: good 15:32 Discharge instructions given to patient, Instructed on discharge instructions, follow up and referral plans. medication usage, Demonstrated understanding of instructions, follow-up care, medications, Prescriptions given X 3, 15:33 Patient left the ED. cm10 Signatures: Dispatcher [employer] EDMS Javier Strickland, IVETTE RN bp Bhavani Monroy PAS PAS ts1 Yessy Young RN RN cm10 ERIC CRISTOBAL RN RN dd2 Yosvany Martins, WARPER FIXER-C WARPER FIXER-Cdr5 Corrections: (The following items were deleted from the chart) 15:06 15:03 BP 107 / 66; Pulse 84bpm; Resp 16bpm; Pulse Ox 100%; bp bp
--- NOTE | 2025-03-06 15:20 | EDPHYS ---
Physician Documentation [facility] Name: Shane Calero II Age: 39 yrs Sex: Male : 1985 Arrival Date: 03/06/2025 Time: 12:59 Bed 6 Private MD: ED Physician Yung Valera HPI: 03/06 17:15 This 39 yrs old Male presents to ER via Ambulatory with complaints of Fall dr5 Injury, Back Pain. 17:15 Onset: The symptoms/episode began/occurred yesterday. Patient is a 39-year-old male dr5 with history of low chronic back pain that worsened when he fell yesterday landing on his lower back. Patient reports he was seen at the [facility] and has had been told he has moderate canal stenosis. Patient denies fever, numbness and tingling in bilateral legs, perirectal numbness, or bowel or bladder incontinence. Patient denies taking medication prior to arrival.. Historical: - Allergies: 13:09 No Known Allergies; dd2 - PMHx: 13:09 bone spurts on my back; dd2 - PSHx: 13:09 RT ELBOW (bone spurts on my back); dd2 - Immunization history:: Adult Immunizations up to date. - Infectious Disease History:: Denies. - Social history:: Smoking status: Patient reports the use of cigarette tobacco products, smokes .25 packs per day. ROS: 17:15 Constitutional: as per hpi dr5 Exam: 17:15 Constitutional: This is a well developed, well nourished patient who is awake, alert, dr5 and in no acute distress. Head/Face: Normocephalic, atraumatic. Eyes: Pupils equal round and reactive to light, extra-ocular motions intact. Lids and lashes normal. Conjunctiva and sclera are non-icteric and not injected. Cornea within normal limits. Periorbital areas with no swelling, redness, or edema. ENT: Nares patent. No nasal discharge, no septal abnormalities noted. Tympanic membranes are normal and external auditory canals are clear. Oropharynx with no redness, swelling, or masses, exudates, or evidence of obstruction, uvula midline. Mucous membranes moist. Chest/axilla: Normal chest wall appearance and motion. Nontender with no deformity. No lesions are appreciated. Cardiovascular: Regular rate and rhythm with a normal S1 and S2. Normal PMI, no JVD. No pulse deficits. Respiratory: Lungs have equal breath sounds bilaterally, clear to auscultation. No rales, rhonchi or wheezes noted. No increased work of breathing, no retractions or nasal flaring. Skin: Warm, dry with normal turgor. Normal color with no rashes, no lesions, and no evidence of cellulitis. MS/ Extremity: Pulses equal, no cyanosis. Neurovascular intact. Full, normal range of motion. Neuro: Awake and alert, GCS 15, oriented to person, place, time, and situation. Cranial nerves II-XII grossly intact. Motor strength 5/5 in all extremities. Sensory grossly intact. Cerebellar exam normal. Normal gait. 17:15 Back: pain, that is moderate, ROM is normal, normal spinal alignment noted, vertebral tenderness, is appreciated at L2, L3, L4 and L5, Vital Signs: 13:07 BP 142 / 89; Pulse 82; Resp 16; Temp 98.2; Pulse Ox 100% on R/A; Weight 99.34 kg; Pain dd2 10/10; 14:00 BP 140 / 89; Pulse 77; Resp 16; Pulse Ox 100% on R/A; cm10 15:07 BP 132 / 78; Pulse 75; Resp 16; Pulse Ox 100% ; bp 13:07 Pain Scale: Adult dd2 MDM: 13:03 Medical Screening Exam initiated dr5 17:15 Differential diagnosis: abrasion, contusion, fracture, laceration, sprain, strain. Data dr5 reviewed: vital signs, nurses notes, radiologic studies, CT scan. Consideration of Admission/Observation Escalation of care including admission/observation considered. Escalation considered patient found to have a cauda equina on CT scan. I considered the following discharge prescriptions or medication management in the emergency department I discussed and recommended Over The Counter medications, Medications were administered in the Emergency Department. See MAR. Care significantly affected by the following chronic conditions: Chronic low back pain. Care significantly affected by the following Social Determinants of Health: Poor access to healthcare and/or lack of insurance, Poor access to transportation, Problems related to employment. Counseling: I had a detailed discussion with the patient and/or guardian regarding the historical points, exam findings, and any diagnostic results supporting the discharge/admit diagnosis, the presence of at least one elevated blood pressure reading (>120/80) during this emergency department visit, radiology results, the need for outpatient follow up, for definitive care, a family practitioner, a orthopedic surgeon, to return to the emergency department if symptoms worsen or persist or if there are any questions or concerns that arise at home. Medication response: Valium, cyclobenzaprine, dexamethasone, normal saline. Response to treatment: the patient's symptoms have markedly improved after treatment. Special discussion: I discussed with the patient/guardian in detail that at this point there is no indication for admission to the hospital. It is understood, however, that if the symptoms persist or worsen the patient needs to return immediately for re-evaluation. Based on the history and exam findings, there is no indication for further emergent testing or inpatient evaluation. I discussed with the patient/guardian the need to see the orthopedic surgeon for further evaluation of the symptoms. I discussed with the patient/guardian the need to see the primary care provider for further evaluation of the symptoms. ED course: Patient reports his pain is markedly improved after medications. I made patient a CD and printed out [facility] Will give patient muscle relaxers and pain medication. All questions answered. Strict ER precautions given. Re[facility].. 03/06 13:15 Order name: CT Lumbar Spine Wo Con; Complete Time: 15:06 dr5 03/06 13:15 Order name: IV Start; Complete Time: 14:04 dr5 Administered Medications: 14:18 Drug: Dexamethasone IVP 10 mg IVP once; (not to exceed 40 mg) Route: IVP; Site: right [facility] hand; 15:00 Follow up: Response: No adverse reaction cm10 14:19 Drug: NS 0.9% IV 1000 ml IV at 1000 ml once; to be given as a bolus over 60 minutes cm10 Route: IV; Rate: 1000 ml; Site: right hand; 15:00 Follow up: Response: No adverse reaction; IV Status: Completed infusion; IV Intake: cm10 1000ml 14:19 Drug: Diazepam IVP 5 mg IVP once Route: IVP; Site: right hand; cm10 15:00 Follow up: Response: No adverse reaction cm10 14:19 Drug: Cyclobenzaprine PO 10 mg PO once Route: PO; cm10 15:00 Follow up: Response: No adverse reaction cm10 Disposition Summary: 03/06/25 15:19 Discharge Ordered Notes: Location: Home dr5 Condition: Stable dr5 Diagnosis - Low back pain dr5 Followup: dr5 - With: Emergency Department - When: As needed - Reason: Worsening of condition Followup: dr5 - With: Private Physician - When: 1 - 2 days - Reason: Recheck today's complaints, Continuance of care, Re-evaluation by your physician Discharge Instructions: - Discharge Summary Sheet dr5 - Acute Back Pain, Adult dr5 Forms: - Work release form ll1 - Medication Reconciliation Form dr5 - Prescription Opioid Use dr5 - Patient Portal Instructions dr5 - Leadership Thank You Letter dr5 Prescriptions: - Cyclobenzaprine 10 mg Oral Tablet - take 1 tablet ORAL route every 8 hours As needed; 30 tablet; Refills: 0, dr5 Product Selection Permitted - Tramadol 50 mg Oral Tablet - take 1 tablet ORAL route every 8 hours as needed; 12 tablet; Refills: 0, dr5 Product Selection Permitted - Medrol (Rashid) 4 mg Oral Tablets, Dose Pack - take 1 tablet ORAL route as directed - follow package instructions; 1 packet; dr5 Refills: 0, Product Selection Permitted Addendum: 03/11/2025 06:58 Co-signature as Attending Physician, Yung Valera MD I reviewed the patient's care r n provided by the Advanced Practice Provider and agree with the diagnosis and treatment plan. Signatures: Dispatcher [employer] Yung Tamayo MD MD rn Martinez, Clarissa, RN RN cm10 ERIC CRISTOBAL RN RN dd2 Yosvany Martins, DIRECTOR IMMUNOLOGY-C DIRECTOR IMMUNOLOGY-Cdr5 Corrections: (The following items were deleted from the chart) 03/06 13:15 13:15 Spine Lumbar Wo [id number] ordered. [facility]
[2025-03-06 16:22] VITALS: TEMP 98.2; O2SAT 100
[2025-03-06 16:25] VITALS: BP 132/78
== END 2025-03-06 15:33 | disposition home or self-care (01) ==
LOC: ER 12:59
DX: M54.50 Low back pain, unspecified (principal); G89.29 Other chronic pain; M48.00 Spinal stenosis, site unspecified; F17.210 Nicotine dependence, cigarettes, uncomplicated
CPT/HCPCS: 96361; 72131; 96375; 96374; 99284; J3360; J1100; J7030